=== PATIENT | male | born 1975 | race Two or more races ===

== ENCOUNTER 2023-01-30 16:50 | Inpatient (IN) | payer MEDICAID, OTHER ==
[~2023-01-30] VITALS: Ht 167.6 cm; Wt 76.5 kg
[2023-01-30] MEDS ORDERED: SODIUM CHLORIDE 0.9% 500 ML IV ONE (17:15)
[2023-01-30 18:10] LABS: Basophils # (auto) 0 10 ^3/uL (0-0.2); Basophils % (auto) 0.2 % (0.0-2.0); Eosinophils # (auto) 0.1 10 ^3/uL (0-0.8); Eosinophils % (auto) 0.6 % (0.0-7.0)
[2023-01-30 18:11] LABS: Hematocrit 11.5 % (41.0-53.0); Lymphocytes # (auto) 1.5 10 ^3/uL (0.4-5.4); Lymphocytes % (auto) 13.6 % (10.0-50.0); Mean Corpuscular Hemoglobin 25.5 pg (28.0-32.0); Mean Corpuscular Hgb Conc. 31.1 g/dL (32.0-36.0); Monocytes # (auto) 0.9 10 ^3/uL (0-1.3); Monocytes % (auto) 8.5 % (0.0-12.0); Neutrophils # (auto) 8.4 10 ^3/uL (1.6-8.6); Neutrophils % (auto) 77.1 % (37.0-80.0); White Blood Cell 10.9 10^3/uL (4.4-10.8)
[2023-01-30 18:25] LABS: INR 1.34 (0.9-1.15); Partial Thromboplastin Time 21.5 sec (24.6-33.4)
[2023-01-30 18:39] LABS: Albumin 2.7 g/dL (3.4-5.0); Anion Gap 10 (5-15); Blood Urea Nitrogen 13 mg/dL (7-18); Carbon Dioxide 26 mmol/L (21-32); Chloride 86 mmol/L (98-107); Lipase 926 U/L (73-393); Magnesium 2.3 mg/dL (1.6-2.6); Potassium 3.7 mmol/L (3.5-5.1); Sodium 122 mmol/L (136-145)
[2023-01-30 18:50] LABS: Hemoglobin 3.6 g/dL (13.5-17.5); Nucleated Red Blood Cells % 3.2 %; Red Cell Distribution Width 23.9 % (11.8-14.3)
[2023-01-30 18:51] LABS: Alanine Aminotransferase 61 U/L (16-61); Alkaline Phosphatase 200 U/L (45-117); Aspartate Aminotransferase 100 U/L (15-37); BUN/Creatinine Ratio 17.8 (10.0-20.0); Bilirubin, Total 1.6 mg/dL (0.2-1.0); Blood Alcohol < 3.0 mg/dL (0-5); GFR African American 147 mL/min; GFR Non-African American 121 mL/min; Glucose 197 mg/dL (74-106)
[2023-01-30 19:32] LABS: Platelet Estimate Adequate
[2023-01-30 19:33] LABS: Anisocytosis Slight; Hypochromia Marked; Large Platelets FEW; Stomatocytes Few; Tear Drop Cells FEW
[2023-01-30 19:55] LABS: Urine Bacteria NONE SEEN /hpf (None Seen); Urine Blood Negative /uL (Negative); Urine Clarity Clear (Clear); Urine Color Yellow (Yellow); Urine Mucus FEW (None Seen); Urine Protein, UAD TRACE (Negative); Urine Specific Gravity 1.021 (1.001-1.035); Urine WBC 14 /hpf (0 - 3)
[2023-01-30 21:10] VITALS: BP 118/48; PULSE 111; RESP 14; TEMP 98.3
[2023-01-30] MEDS ORDERED: ONDANSETRON HCL 4 MG/2 ML VIAL IV PRN (21:15)
[2023-01-30] MEDS ORDERED: PANTOPRAZOLE 40 MG TAB PO ONE (21:15)
[2023-01-30 21:30] VITALS: BP 120/43; PULSE 108; RESP 16; TEMP 98.4
[2023-01-30 22:00] LABS: % Iron Saturation 2.9 % (20-55)
[2023-01-31] VITALS (11 sets, daily range): BP systolic 99–126; BP diastolic 46–65; PULSE 86–105; RESP 15–20; TEMP 98.1–98.8; O2SAT 98–99
[2023-01-31 06:07] LABS: Basophils # (auto) 0 10 ^3/uL (0-0.2); Basophils % (auto) 0.4 % (0.0-2.0); Eosinophils # (auto) 0.1 10 ^3/uL (0-0.8); Lymphocytes # (auto) 1.5 10 ^3/uL (0.4-5.4)
[2023-01-31 06:09] LABS: Eosinophils % (auto) 1.8 % (0.0-7.0); Hematocrit 18.3 % (41.0-53.0); Lymphocytes % (auto) 21.6 % (10.0-50.0); Mean Corpuscular Hemoglobin 27.6 pg (28.0-32.0); Mean Corpuscular Hgb Conc. 33.6 g/dL (32.0-36.0); Mean Corpuscular Volume 82.2 fL (80.0-100.0); Monocytes # (auto) 0.6 10 ^3/uL (0-1.3); Monocytes % (auto) 9.5 % (0.0-12.0); Neutrophils # (auto) 4.5 10 ^3/uL (1.6-8.6); Neutrophils % (auto) 66.7 % (37.0-80.0); Nucleated Red Blood Cells % 0.7 %; Red Blood Cells 2.23 10^6/uL (4.5-5.90); Red Cell Distribution Width 17.7 % (11.8-14.3); White Blood Cell 6.8 10^3/uL (4.4-10.8)
[2023-01-31 06:17] LABS: Potassium 3.2 mmol/L (3.5-5.1)
[2023-01-31 06:21] LABS: Hemoglobin 6.1 g/dL (13.5-17.5)
[2023-01-31 06:25] LABS: Albumin 2.5 g/dL (3.4-5.0); BUN/Creatinine Ratio 23.3 (10.0-20.0); Bilirubin, Total 2.4 mg/dL (0.2-1.0); Calcium 7.6 mg/dL (8.5-10.1); Total Protein 5.4 g/dL (6.4-8.2)
[2023-01-31] MEDS: PANTOPRAZOLE 40 MG TAB PO SCH (10:00)
[2023-01-31] MEDS: PANTOPRAZOLE 40 MG/10 ML VIAL INJ IV SCH ×2 (10:02→22:12)
[2023-01-31] MEDS: FOLIC ACID 1 MG, MULTIPLE VITAMIN 10 ML, MAGNESIUM SULF SDV 50% 8 MEQ, THIAMINE INJ 100... INJ SCH ×5 (14:05)
[2023-01-31 15:56] LABS: Basophils # (auto) 0 10 ^3/uL (0-0.2); Basophils % (auto) 0.2 % (0.0-2.0); Eosinophils # (auto) 0.1 10 ^3/uL (0-0.8); Eosinophils % (auto) 1.1 % (0.0-7.0); Hematocrit 21.5 % (41.0-53.0); Lymphocytes % (auto) 18.1 % (10.0-50.0); Mean Corpuscular Hemoglobin 27.2 pg (28.0-32.0); Mean Corpuscular Volume 85.2 fL (80.0-100.0); Monocytes # (auto) 0.6 10 ^3/uL (0-1.3); Monocytes % (auto) 10.9 % (0.0-12.0); Neutrophils % (auto) 69.7 % (37.0-80.0); Nucleated Red Blood Cells % 0.6 %; Red Blood Cells 2.53 10^6/uL (4.5-5.90); Red Cell Distribution Width 16.9 % (11.8-14.3); White Blood Cell 5.8 10^3/uL (4.4-10.8)
[2023-01-31 16:02] LABS: Hemoglobin 6.9 g/dL (13.5-17.5)
[2023-02-01] VITALS (7 sets, daily range): BP systolic 102–113; BP diastolic 47–65; PULSE 80–98; RESP 17–18; TEMP 97.8–98.3; O2SAT 97–100
[2023-02-01 00:42] LABS: Hematocrit 20.3 % (41.0-53.0)
[2023-02-01 01:02] LABS: Hemoglobin 6.8 g/dL (13.5-17.5)
[2023-02-01 02:00] LABS: Hemoglobin 6.7 g/dL (13.5-17.5)
[2023-02-01 08:29] LABS: Basophils # (auto) 0 10 ^3/uL (0-0.2); Eosinophils # (auto) 0.1 10 ^3/uL (0-0.8); Hemoglobin 8.3 g/dL (13.5-17.5); Mean Corpuscular Hgb Conc. 32.8 g/dL (32.0-36.0); Red Blood Cells 2.93 10^6/uL (4.5-5.90)
[2023-02-01 08:31] LABS: Eosinophils % (auto) 1.8 % (0.0-7.0); Hematocrit 25.4 % (41.0-53.0); Lymphocytes % (auto) 22.3 % (10.0-50.0); Mean Corpuscular Hemoglobin 28.4 pg (28.0-32.0); Mean Corpuscular Volume 86.6 fL (80.0-100.0); Monocytes # (auto) 0.5 10 ^3/uL (0-1.3); Monocytes % (auto) 10.6 % (0.0-12.0); Neutrophils # (auto) 2.9 10 ^3/uL (1.6-8.6); Neutrophils % (auto) 64.3 % (37.0-80.0); Nucleated Red Blood Cells % 0.1 %; Red Cell Distribution Width 16.9 % (11.8-14.3); White Blood Cell 4.5 10^3/uL (4.4-10.8)
[2023-02-01 09:00] LABS: Albumin 2.5 g/dL (3.4-5.0); Calcium 7.6 mg/dL (8.5-10.1); Potassium 3.9 mmol/L (3.5-5.1)
[2023-02-01 09:04] LABS: BUN/Creatinine Ratio 7.7 (10.0-20.0); Bilirubin, Total 2.2 mg/dL (0.2-1.0); Total Protein 5.5 g/dL (6.4-8.2)
[2023-02-01] MEDS: PANTOPRAZOLE 40 MG TAB PO SCH (10:00)
[2023-02-01] MEDS: PANTOPRAZOLE 40 MG/10 ML VIAL INJ IV SCH ×2 (10:29→21:41)
[2023-02-01] MEDS: FOLIC ACID 1 MG, MULTIPLE VITAMIN 10 ML, MAGNESIUM SULF SDV 50% 8 MEQ, THIAMINE INJ 100... INJ SCH ×5 (15:32)
[2023-02-01] MEDS ORDERED: fentaNYL CITRATE 100 MCG/2 ML VL ONE (17:32)
[2023-02-01] MEDS ORDERED: MIDAZOLAM HCL 2MG/2ML 2ml VIAL (1mg/ml) ONE (17:32)
[2023-02-01] MEDS ORDERED: LIDOCAINE 2% (LOCAL ANESTH.) PF 5ml SDV ONE (17:36)
[2023-02-01] MEDS ORDERED: ONDANSETRON HCL 4 MG/2 ML VIAL ONE (17:36)
[2023-02-01] MEDS ORDERED: PROPOFOL 10 MG/ML 20 ML IV ONE (17:36)
[2023-02-01] MEDS ORDERED: ONDANSETRON HCL 4 MG/2 ML VIAL IV PRN (18:00)
[2023-02-01] MEDS: SUCRALFATE 1 GM/10 ML ORAL SUSP PO SCH (21:40)
[2023-02-02] VITALS (7 sets, daily range): BP systolic 103–129; BP diastolic 62–77; PULSE 17–98; RESP 17–20; TEMP 97.5–98.5; O2SAT 96–99
[2023-02-02] MEDS: SUCRALFATE 1 GM/10 ML ORAL SUSP PO SCH ×4 (06:06→21:59)
[2023-02-02] MEDS: PANTOPRAZOLE 40 MG/10 ML VIAL INJ IV SCH ×2 (09:41→21:59)
[2023-02-02] MEDS: FOLIC ACID 1 MG, MULTIPLE VITAMIN 10 ML, MAGNESIUM SULF SDV 50% 8 MEQ, THIAMINE INJ 100... INJ SCH ×5 (17:01)
[2023-02-03 05:00] VITALS: BP 109/70; PULSE 84; RESP 17; TEMP 98; O2SAT 96
[2023-02-03] MEDS: SUCRALFATE 1 GM/10 ML ORAL SUSP PO SCH ×2 (06:26→12:10)
[2023-02-03 08:00] VITALS: PULSE 71; RESP 19; O2SAT 95
[2023-02-03 08:49] VITALS: BP 138/86; PULSE 71; RESP 19; TEMP 98.2; O2SAT 95
[2023-02-03] MEDS ORDERED: SUCR1SUS26 PO (11:13)
[2023-02-03] MEDS ORDERED: PANT40TA2 PO (11:13)
[2023-02-03] MEDS ORDERED: HYDR-4902 PO ×3 (11:13→15:57)
[2023-02-03] MEDS: FOLIC ACID 1 MG, MULTIPLE VITAMIN 10 ML, MAGNESIUM SULF SDV 50% 8 MEQ, THIAMINE INJ 100... INJ SCH ×5 (12:00)
[2023-02-03] MEDS: PANTOPRAZOLE 40 MG/10 ML VIAL INJ IV SCH (12:10)
[2023-02-03 12:44] VITALS: BP 122/77; PULSE 87; RESP 19; TEMP 98.3; O2SAT 98
== END 2023-02-03 15:30 | disposition home or self-care (01) | DRG 242 ==
LOC: ER 16:50 → OVERFLOW 21:09 → WEST WING 01-31 18:34
PROVIDERS: ADMIT Nurse Practitioner; ATTEND Internal Medicine
PROC: 30233N1 Transfusion of Nonautologous Red Blood Cells into Peripheral Vein, Percutaneous Approach (ICD-10-PCS; 2023-01-30)
PROC: 0DB68ZX Excision of Stomach, Via Natural or Artificial Opening Endoscopic, Diagnostic (ICD-10-PCS; 2023-02-01)
PROC: 0DB58ZX Excision of Esophagus, Via Natural or Artificial Opening Endoscopic, Diagnostic (ICD-10-PCS; 2023-02-01)
PROC: 0DB98ZX Excision of Duodenum, Via Natural or Artificial Opening Endoscopic, Diagnostic (ICD-10-PCS; principal; 2023-02-01 17:30)
DX: K22.11 Ulcer of esophagus with bleeding (principal); K85.90 Acute pancreatitis without necrosis or infection, unspecified; D68.9 Coagulation defect, unspecified; E87.1 Hypo-osmolality and hyponatremia; F10.139 Alcohol abuse with withdrawal, unspecified; D64.9 Anemia, unspecified; K74.60 Unspecified cirrhosis of liver; K44.9 Diaphragmatic hernia without obstruction or gangrene; E87.8 Other disorders of electrolyte and fluid balance, not elsewhere classified; Y90.9 Presence of alcohol in blood, level not specified; K29.70 Gastritis, unspecified, without bleeding; K29.90 Gastroduodenitis, unspecified, without bleeding; Z83.3 Family history of diabetes mellitus
CPT/HCPCS: 36415; 74176; 80053; 80320; 81001; 82270; 83540; 83550; 83690; 83735; 85014; 85018; 85025; 85610; 85730; 86850; 86900; 86901; 86920; 93005; 96360; C9113; G0378; J2001; J2250; J2405; J2704

== ENCOUNTER 2024-07-11 09:27 | Inpatient (IN) | payer BC, MEDICAID ==
[~2024-07-11] VITALS: Ht 167.6 cm; Wt 74.4 kg
[~2024-07-11 09:27] MED LIST: HYDR-4902 PO; PANT40TA2 PO; SUCR1SUS26 PO
[2024-07-11] MEDS: SODIUM CHLORIDE 0.9% 1,000 ML IV ONE ×5 (10:13→20:26)
[2024-07-11 10:26] LABS: Basophils # (auto) 0.1 10 ^3/uL (0-0.2); Basophils % (auto) 0.4 % (0.0-2.0); Eosinophils # (auto) 0 10 ^3/uL (0-0.8); Hemoglobin 7.8 g/dL (13.5-17.5); Monocytes # (auto) 1.6 10 ^3/uL (0-1.3); Neutrophils # (auto) 14.6 10 ^3/uL (1.6-8.6)
[2024-07-11 10:28] LABS: Hematocrit 32.1 % (41.0-53.0); Lymphocytes # (auto) 0.6 10 ^3/uL (0.4-5.4); Lymphocytes % (auto) 3.8 % (10.0-50.0); Mean Corpuscular Hemoglobin 20.8 pg (28.0-32.0); Mean Corpuscular Hgb Conc. 24.3 g/dL (32.0-36.0); Mean Corpuscular Volume 85.6 fL (80.0-100.0); Monocytes % (auto) 9.5 % (0.0-12.0); Neutrophils % (auto) 86.3 % (37.0-80.0); Nucleated Red Blood Cells % 0.3 %; Platelet Count (auto) 345 10^3/uL (140-450); Red Blood Cells 3.75 10^6/uL (4.5-5.90); White Blood Cell 16.9 10^3/uL (4.4-10.8)
[2024-07-11] MEDS: THIAMINE 100mg/ml INJ (200mg/2ml VIAL) IV ONE (10:28)
[2024-07-11 10:43] LABS: Calcium 11.9 mg/dL (8.7-10.4)
[2024-07-11 10:47] LABS: BUN/Creatinine Ratio 15.5 (10.0-20.0); Blood Urea Nitrogen 29 mg/dL (9-23)
[2024-07-11 10:48] LABS: Blood Alcohol < 3.0 mg/dL (<10)
[2024-07-11 11:51] LABS: Sodium 117 mmol/L (136-145)
[2024-07-11 11:52] LABS: Anion Gap 29.00001 (5-15); Carbon Dioxide < 10 mmol/L (20-31); Chloride 78 mmol/L (98-107)
[2024-07-11 11:53] LABS: Glucose 697 mg/dL (74-106); Potassium 7.3 mmol/L (3.5-5.1)
[2024-07-11 12:00] LABS: Platelet Estimate Adequate
[2024-07-11 12:01] LABS: Anisocytosis Slight; Hypochromia Marked
[2024-07-11 12:22] LABS: Urine Bacteria None Seen /hpf (None Seen)
[2024-07-11] MEDS: ALBUTEROL SULF 2.5 MG/0.5ML(0.5%) NEB SOLN NEB ONE ×2 (12:40→15:32)
[2024-07-11 12:52] LABS: Urine Blood 1+ /uL (Negative); Urine Clarity Clear (Clear); Urine Color Light-Yellow (Yellow); Urine Protein, UAD TRACE (Negative); Urine Specific Gravity 1.018 (1.001-1.035); Urine Urobilinogen Normal (Negative); Urine WBC 1 /hpf (0 - 3)
[2024-07-11] MEDS: SODIUM BICARB 8.4% 50Meq/50ml SYR INJ IV ONE (13:30)
[2024-07-11] MEDS: InsuLIN REG 1unit/0.01ml Soln (100units/ml) IV ONE ×2 (13:30→15:00)
[2024-07-11] MEDS: CALCIUM GLUC 1,000mg/50ml-NS 50 ML IV ONE (13:33)
[2024-07-11] MEDS: SODIUM ZIRCONIUM CYCL 10 GM PAK PO ONE ×2 (13:33→14:44)
[2024-07-11] MEDS: DEXTROSE (50%) 50ML SYRG IV ONE (13:36)
[2024-07-11] MEDS: FUROSEMIDE 20 MG/2 ML VIAL IV ONE ×2 (13:37→15:13)
[2024-07-11 14:00] VITALS: PULSE 112; RESP 20; O2SAT 100
[2024-07-11 14:20] LABS: Alanine Aminotransferase 254 U/L (7-40); Albumin 3.7 g/dL (3.2-4.8); Alkaline Phosphatase 121 U/L (46-116); Anion Gap 29.00001 (5-15); Aspartate Aminotransferase 523 U/L (13-40); BUN/Creatinine Ratio 19.6 (10.0-20.0); Blood Urea Nitrogen 35 mg/dL (9-23); Calcium 11.5 mg/dL (8.7-10.4); Chloride 81 mmol/L (98-107)
[2024-07-11 14:21] LABS: Bilirubin, Total 2.2 mg/dL (0.2-1.0); Total Protein 5.7 g/dL (5.7-8.2)
[2024-07-11 14:24] LABS: Potassium 6.4 mmol/L (3.5-5.1); Sodium 120 mmol/L (136-145)
[2024-07-11 14:25] LABS: Carbon Dioxide < 10 mmol/L (20-31); Glucose 623 mg/dL (74-106)
[2024-07-11] MEDS: SODIUM BICARB 50mEq/50ml Vial 150 ML in D5W 5% 1,000 ML IV ONE (14:45)
[2024-07-11] MEDS: SODIUM BICARB 8.4% 50Meq/50ml SYR Vial IV ONE ×2 (15:13→23:45)
[2024-07-11] MEDS: PIPERACILLIN-TAZOB 3.375GM 100 ML IV SCH (15:30)
[2024-07-11] MEDS ORDERED: HYDROmorphone HCL 2 MG/ML VL/or syr IV PRN (16:15)
[2024-07-11] MEDS ORDERED: DEXTROSE (50%) 50ML SYRG IV PRN (16:15)
[2024-07-11] MEDS ORDERED: DOCUSATE SOD 100 MG CAP PO PRN (16:15)
[2024-07-11] MEDS: INSULIN LANTUS (GLARGINE) 1 /0.01ml (100units/ml) SC ONE (16:43)
[2024-07-11] MEDS: ACCU-CHEK COMFORT CURVE STRIP VI SCH (16:46)
[2024-07-11 16:47] LABS: Base Excess -14.7 mmol/L (-2.0-3.0)
[2024-07-11 17:08] LABS: Alanine Aminotransferase 276 U/L (7-40); Albumin 2.9 g/dL (3.2-4.8); Alkaline Phosphatase 94 U/L (46-116); Anion Gap 28 (5-15); Aspartate Aminotransferase 638 U/L (13-40); BUN/Creatinine Ratio 21.3 (10.0-20.0); Bilirubin, Total 1.9 mg/dL (0.2-1.0); Blood Urea Nitrogen 32 mg/dL (9-23); Calcium 9.9 mg/dL (8.7-10.4); Carbon Dioxide 14 mmol/L (20-31); Chloride 85 mmol/L (98-107); Potassium 4.3 mmol/L (3.5-5.1); Total Protein 4.7 g/dL (5.7-8.2)
[2024-07-11 17:09] LABS: INR 1.88 (0.9-1.15)
[2024-07-11] MEDS: INSULIN DRIP 100 UNIT/100ML 100 ML IV SCH (17:10)
[2024-07-11 17:19] LABS: Sodium 127 mmol/L (136-145)
[2024-07-11] MEDS: SUCRALFATE 1 GM/10 ML ORAL SUSP PO SCH (17:20)
[2024-07-11 17:21] LABS: Glucose 438 mg/dL (74-106)
[2024-07-11 17:22] LABS: Lactic Acid w/Reflex 19.2 mmol/L (0.4-2.0)
[2024-07-11] MEDS: SODIUM CHLORIDE 0.9% 3,000 ML IV ONE (17:30)
[2024-07-11] MEDS: ONDANSETRON HCL 4 MG/2 ML VIAL IV PRN (19:09)
[2024-07-11 19:35] VITALS: PULSE 128; RESP 19; O2SAT 100
[2024-07-11] MEDS: LORazepam 2MG/ML-1ML VIAL IV PRN (19:54)
[2024-07-11] MEDS: LORazepam 2MG/ML-1ML VIAL IV SCH ×2 (20:00)
[2024-07-11 20:47] LABS: Alanine Aminotransferase 327 U/L (7-40); Albumin 2.2 g/dL (3.2-4.8); Alkaline Phosphatase 68 U/L (46-116); Aspartate Aminotransferase 883 U/L (13-40); BUN/Creatinine Ratio 33.1 (10.0-20.0); Bilirubin, Total 1.2 mg/dL (0.2-1.0); Calcium 8.9 mg/dL (8.7-10.4); Carbon Dioxide 12 mmol/L (20-31); Total Protein 3.6 g/dL (5.7-8.2)
[2024-07-11 20:51] LABS: Blood Urea Nitrogen 43 mg/dL (9-23); Glucose 305 mg/dL (74-106); Sodium 132 mmol/L (136-145)
[2024-07-11 21:04] LABS: Anion Gap 27 (5-15); Chloride 93 mmol/L (98-107)
[2024-07-11] MEDS: NOREPINEPHRINE 8 MG/250ML KIT 250 ML IV SCH (21:30)
[2024-07-11] MEDS: SODIUM CHLOR 0.9% PF (SALINE LOCK) 10ML VIAL/SYR IV SCH (22:01)
[2024-07-11 22:55] LABS: Base Excess -12.9 mmol/L (-2.0-3.0)
[2024-07-11 23:07] LABS: Hematocrit 18.9 % (41.0-53.0)
[2024-07-11 23:11] LABS: Hemoglobin 4.7 g/dL (13.5-17.5)
[2024-07-11] MEDS: MIDAZOLAM HCL 5 MG/ML-1ML VIAL ONE (23:27)
[2024-07-11] MEDS: ROCURONIUM 10MG/ML 10ML VIAL IV ONE ×2 (23:27→23:30)
[2024-07-11] MEDS: VASOPRESSIN 20 UNITS in SODIUM CHL 0.9% 99 ML IV SCH (23:30)
[2024-07-11] MEDS: MIDAZOLAM HCL 5 MG/ML-1ML VIAL IV ONE (23:30)
[2024-07-11] MEDS: VASOPRESSIN 20 UNIT/ML ONE (23:42)
[2024-07-11] MEDS: SODIUM BICARB 8.4% 50Meq/50ml SYR INJ ONE (23:44)
[2024-07-11 23:45] VITALS: BP 65/18; PULSE 54; RESP 24; O2SAT 92
[2024-07-11] MEDS: CALCIUM GLUC 1,000mg/50ml-NS 50 ML IV SCH (23:45)
[2024-07-11 23:51] LABS: Lactic Acid w/Reflex 20.2 mmol/L (0.4-2.0)
[2024-07-11] MEDS: EPINEPHrine HCL 1 MG/10 ML SYRG IV ONE (23:53)
[2024-07-11] MEDS: EPINEPHrine HCL 250 ML IV ONE (23:59)
[2024-07-12] VITALS (124 sets, daily range): BP systolic 19–269; BP diastolic 14–295; PULSE 57–129; RESP 13–35; TEMP 96.8–99.9; O2SAT 40–100
[2024-07-12] MEDS: EPINEPHrine HCL 250 ML IV SCH
[2024-07-12] MEDS: PHENYLEPHRINE IV 250 ML IV SCH
[2024-07-12] MEDS: PROPOFOL 100 ML IV SCH
[2024-07-12] MEDS: AMIODARONE BOLUS KIT 100 ML IV ONE
[2024-07-12] MEDS: AMIODARONE 450mg/250ml AE 250 ML IV ONE (00:13)
[2024-07-12] MEDS: PHENYLEPHRINE IV 250 ML IV ONE (00:24)
[2024-07-12] MEDS: OCTREOTIDE ACETATE 100 MCG in SODIUM CHL 0.9% 50 ML IV ONE (00:30)
[2024-07-12] MEDS: OCTREOTIDE ACETATE 500 MCG in SODIUM CHL 0.9% 99 ML IV SCH (00:30)
[2024-07-12 00:56] LABS: Alanine Aminotransferase 451 U/L (7-40); Alkaline Phosphatase 72 U/L (46-116); Anion Gap 30 (5-15); BUN/Creatinine Ratio 22.7 (10.0-20.0); Blood Urea Nitrogen 37 mg/dL (9-23); Calcium 12.5 mg/dL (8.7-10.4); Carbon Dioxide 12 mmol/L (20-31); Chloride 93 mmol/L (98-107); Potassium 4.7 mmol/L (3.5-5.1); Sodium 135 mmol/L (136-145)
[2024-07-12 00:57] LABS: Albumin 2.3 g/dL (3.2-4.8); Bilirubin, Total 1.8 mg/dL (0.2-1.0); Total Protein 3.7 g/dL (5.7-8.2)
[2024-07-12 01:07] LABS: Aspartate Aminotransferase 1249 U/L (13-40)
[2024-07-12 01:08] LABS: Glucose 170 mg/dL (74-106)
[2024-07-12] MEDS: PANTOPRAZOLE 40 MG/10 ML VIAL INJ IV ONE (01:44)
[2024-07-12] MEDS: OCTREOTIDE ACETATE 500 MCG/ML VL ONE (01:45)
[2024-07-12] MEDS: OCTREOTIDE ACETATE 100 MCG/ML VL ONE (01:45)
[2024-07-12 02:35] LABS: Base Excess -16.2 mmol/L (-2.0-3.0)
[2024-07-12 03:56] LABS: Hematocrit 27.6 % (41.0-53.0); Hemoglobin 7.5 g/dL (13.5-17.5); White Blood Cell 12.3 10^3/uL (4.4-10.8)
[2024-07-12 03:58] LABS: Mean Corpuscular Hgb Conc. 27.1 g/dL (32.0-36.0); Mean Corpuscular Volume 91.9 fL (80.0-100.0); Platelet Count (auto) 158 10^3/uL (140-450)
[2024-07-12 04:04] LABS: Red Cell Distribution Width 23.6 % (11.8-14.3)
[2024-07-12 04:06] LABS: Basophils % (manual) 0 (0.0-2.0); Blast Cells 0; Eosinophils % (manual) 0 (0-7); Metamyelocytes % 0; Promyelocytes % 0; Reactive Lymphocytes 0
[2024-07-12 04:32] LABS: Albumin 2.2 g/dL (3.2-4.8); Alkaline Phosphatase 154 U/L (46-116); Anion Gap 24 (5-15); BUN/Creatinine Ratio 21.6 (10.0-20.0); Bilirubin, Total 2.2 mg/dL (0.2-1.0); Blood Urea Nitrogen 37 mg/dL (9-23); Calcium 9.8 mg/dL (8.7-10.4); Carbon Dioxide 14 mmol/L (20-31); Chloride 99 mmol/L (98-107); Glucose 135 mg/dL (74-106); Sodium 137 mmol/L (136-145); Total Protein 3.6 g/dL (5.7-8.2)
[2024-07-12 04:56] LABS: Band Neutrophils % (manual) 19; Lymphocytes % (manual) 13 (10.0-50.0); Monocytes % (manual) 5 (0-12); Myelocytes % 1; Platelet Estimate Adequate
[2024-07-12 04:58] LABS: Base Excess -15.8 mmol/L (-2.0-3.0)
[2024-07-12 04:59] LABS: Alanine Aminotransferase 1393 U/L (7-40)
[2024-07-12] MEDS: SODIUM BICARB 8.4% 50Meq/50ml SYR Vial IV ONE ×5 (05:44→22:52)
[2024-07-12] MEDS: SODIUM BICARB 50mEq/50ml Vial 100 ML in D5W 5% 1,000 ML IV SCH (05:45)
[2024-07-12 06:12] LABS: Aspartate Aminotransferase 3882 U/L (13-40)
[2024-07-12] MEDS: MIDAZOLAM DRIP 50 mg/50mL 50 ML IV SCH (08:08)
[2024-07-12] MEDS: fentaNYL Drip 2500mCg/250mlNS 250 ML IV SCH (08:09)
[2024-07-12] MEDS: AMIODARONE 450mg/250ml AE 250 ML IV SCH ×2 (08:10)
[2024-07-12] MEDS: SODIUM BICARB 8.4% 50Meq/50ml SYR INJ ONE ×2 (08:11)
[2024-07-12] MEDS: INSULIN LANTUS (GLARGINE) 1 /0.01ml (100units/ml) SC SCH (08:20)
[2024-07-12] MEDS: THIAMINE HCL 100 MG TAB PO SCH (08:23)
[2024-07-12] MEDS: PANTOPRAZOLE 40 MG TAB PO SCH (08:23)
[2024-07-12] MEDS: FOLIC ACID 1 MG TAB PO SCH (08:24)
[2024-07-12 09:47] LABS: Base Excess -20.7 mmol/L (-2.0-3.0)
[2024-07-12] MEDS: SODIUM CHLORIDE 0.9% 2,000 ML IV ONE ×2 (11:00→14:33)
[2024-07-12] MEDS: PANTOPRAZOLE 40mg/50ML NS AE 50 ML IV SCH (11:33)
[2024-07-12 13:14] LABS: Base Excess -24.3 mmol/L (-2.0-3.0)
[2024-07-12] MEDS ORDERED: MEROPENEM 500MG IVPB 50 ML IV ONE (14:15)
[2024-07-12] MEDS: MEROPENEM 1GM IVPB 50 ML IV ONE (14:29)
[2024-07-12] MEDS: HYDROCORTISONE SOD SUCC 100 MG/2ML INJ VIAL IV ONE (14:29)
[2024-07-12 14:42] LABS: Base Excess -23.9 mmol/L (-2.0-3.0)
[2024-07-12] MEDS: DOPamine 1600MCG/ML D5W 250 ML IV ONE (14:51)
[2024-07-12 15:02] LABS: Mean Corpuscular Hemoglobin 23.5 pg (28.0-32.0)
[2024-07-12 15:03] LABS: Hematocrit 21.2 % (41.0-53.0); Mean Corpuscular Hgb Conc. 26.4 g/dL (32.0-36.0); Mean Corpuscular Volume 88.9 fL (80.0-100.0); Platelet Count (auto) 104 10^3/uL (140-450); Red Blood Cells 2.38 10^6/uL (4.5-5.90); White Blood Cell 18.1 10^3/uL (4.4-10.8)
[2024-07-12] MEDS: HEPARIN 1,000 UNITS/ml 1ML VIAL ONE (15:04)
[2024-07-12 15:08] LABS: Lactic Acid w/Reflex 28.6 mmol/L (0.4-2.0); Red Cell Distribution Width 24.9 % (11.8-14.3)
[2024-07-12 15:10] LABS: Hemoglobin 5.6 g/dL (13.5-17.5)
[2024-07-12 15:12] LABS: Basophils % (manual) 0 (0.0-2.0); Blast Cells 0; Eosinophils % (manual) 0 (0-7); Promyelocytes % 0; Reactive Lymphocytes 0
[2024-07-12] MEDS: METHYLENE BLUE 0.5% 5MG/ML 10ml AMP IV ONE (15:22)
[2024-07-12 15:27] LABS: Albumin 1.4 g/dL (3.2-4.8); Alkaline Phosphatase 80 U/L (46-116); Anion Gap 32.00001 (5-15); BUN/Creatinine Ratio 17.7 (10.0-20.0); Calcium 8.4 mg/dL (8.7-10.4); Chloride 99 mmol/L (98-107); Glucose 188 mg/dL (74-106); Potassium 5.2 mmol/L (3.5-5.1); Sodium 141 mmol/L (136-145); Total Protein 2.5 g/dL (5.7-8.2)
[2024-07-12 15:28] LABS: Anisocytosis Moderate; Band Neutrophils % (manual) 26; Hypochromia Moderate; Lymphocytes % (manual) 19 (10.0-50.0); Metamyelocytes % 8; Monocytes % (manual) 4 (0-12); Myelocytes % 1; Platelet Estimate Decreased
[2024-07-12 15:44] LABS: Alanine Aminotransferase 3078 U/L (7-40); Aspartate Aminotransferase > 6000 U/L (13-40); Blood Urea Nitrogen 47 mg/dL (9-23)
[2024-07-12 15:45] LABS: Carbon Dioxide < 10 mmol/L (20-31)
[2024-07-12] MEDS ORDERED: ARTIFICIAL TEAR OPTH(EYE) OINT 3.5GM EACHEYE ONE (16:15)
[2024-07-12] MEDS: PHENYLEPHRINE INJ 80 MG in SODIUM CHL 0.9% 242 ML IV SCH (16:30)
[2024-07-12 16:43] LABS: Base Excess -26.1 mmol/L (-2.0-3.0)
[2024-07-12] MEDS: EPINEPHrine HCL INJECTION 16 MG in D5W 5% 234 ML IV SCH (17:00)
[2024-07-12] MEDS: NOREPINEPHRINE 8 MG/250ML KIT 250 ML IV ONE (17:04)
[2024-07-12] MEDS: HYDROCORTISONE SOD SUCC 100 MG/2ML INJ VIAL IV SCH (18:00)
[2024-07-12] MEDS ORDERED: VANCOMYCIN PER PHARMACY 0 MG IV SCH (18:00)
[2024-07-12] MEDS: ALBUMIN 25% 100 ML IV ONE ×2 (19:42→20:00)
[2024-07-12] MEDS: ALBUMIN 25% 100 ML IV SCH (20:00)
[2024-07-12] MEDS: NOREPINEPHRINE BITARTRATE 32 MG in SODIUM CHL 0.9% 218 ML IV SCH (20:13)
[2024-07-12 20:17] LABS: Base Excess -25.5 mmol/L (-2.0-3.0)
[2024-07-12 20:29] LABS: Hemoglobin 7.2 g/dL (13.5-17.5); Red Blood Cells 2.85 10^6/uL (4.5-5.90)
[2024-07-12 20:31] LABS: Mean Corpuscular Hemoglobin 25.4 pg (28.0-32.0); Mean Corpuscular Hgb Conc. 26.8 g/dL (32.0-36.0); Mean Corpuscular Volume 94.6 fL (80.0-100.0); Platelet Count (auto) 93 10^3/uL (140-450); White Blood Cell 23.6 10^3/uL (4.4-10.8)
[2024-07-12 20:47] LABS: Albumin 1.7 g/dL (3.2-4.8); Alkaline Phosphatase 104 U/L (46-116); Anion Gap 30.00001 (5-15); Blood Urea Nitrogen 38 mg/dL (9-23); Calcium 7.6 mg/dL (8.7-10.4); Chloride 99 mmol/L (98-107); Glucose 147 mg/dL (74-106); Sodium 139 mmol/L (136-145)
[2024-07-12 20:48] LABS: Bilirubin, Total 2.4 mg/dL (0.2-1.0); Total Protein 2.9 g/dL (5.7-8.2)
[2024-07-12 21:18] LABS: Alanine Aminotransferase 4946 U/L (7-40); Aspartate Aminotransferase > 6000 U/L (13-40)
[2024-07-12 21:20] LABS: Carbon Dioxide < 10 mmol/L (20-31); Lactic Acid w/Reflex 29.6 mmol/L (0.4-2.0); Potassium 6.2 mmol/L (3.5-5.1)
[2024-07-12 21:26] LABS: Basophils % (manual) 0 (0.0-2.0); Blast Cells 0; Promyelocytes % 0; Reactive Lymphocytes 0; Red Cell Distribution Width 24.7 % (11.8-14.3)
[2024-07-12] MEDS: VANCOMYCIN 1.5GM/300ML 300 ML IV ONE (21:44)
[2024-07-12 21:52] LABS: Anisocytosis Moderate; Band Neutrophils % (manual) 29; Eosinophils % (manual) 1 (0-7); Lymphocytes % (manual) 32 (10.0-50.0); Metamyelocytes % 4; Monocytes % (manual) 5 (0-12); Myelocytes % 4; Platelet Estimate Decreased
[2024-07-12] MEDS ORDERED: ALBUTEROL SULF 2.5 MG/0.5ML(0.5%) NEB SOLN NEB ONE (22:00)
[2024-07-12] MEDS ORDERED: EPINEPHRINE HCL IV SCH (22:00)
[2024-07-12] MEDS ORDERED: ARTIFICIAL TEAR OPTH(EYE) OINT 3.5GM EACHEYE SCH (22:00)
[2024-07-12] MEDS ORDERED: SODIUM CHL 0.9% IV SCH (22:00)
[2024-07-12] MEDS: ARTIFICIAL TEARS 15ml EACHEYE PRN (22:17)
[2024-07-12] MEDS: ALBUTEROL SULF 2.5 MG/0.5ML(0.5%) NEB SOLN ONE (22:27)
[2024-07-12] MEDS: DOPamine 1600MCG/ML D5W 250 ML IV SCH (22:51)
[2024-07-12] MEDS: CALCIUM GLUC 1,000mg/50ml-NS 50 ML IV ONE (22:53)
[2024-07-12] MEDS: MEROPENEM 1GM IVPB 50 ML IV SCH (23:20)
[2024-07-12 23:39] LABS: Base Excess -25.7 mmol/L (-2.0-3.0)
[2024-07-13] VITALS: BP_SYST 105; BP_SYST 99; BP_DIAS 33; BP_DIAS 34; PULSE 68; PULSE 69; RESP 35; TEMP 97.2; O2SAT 68; O2SAT 69
[2024-07-13] MEDS ORDERED: MEROPENEM 500MG IVPB 50 ML IV SCH (10:00)
[2024-07-13] MEDS ORDERED: CALCIUM CHLOR(10%) 100MG/ML 10ML SYRINGE IV ONE (12:54)
[2024-07-15 09:19] LABS: Hepatitis B Surface Antigen Negative (Negative)
[2024-07-15 09:28] LABS: Hepatitis A Ab IgM Negative; Hepatitis B Core IgM Negative
[2024-07-15 09:29] LABS: Hepatitis C Antibody Negative (Negative)
== END 2024-07-13 00:12 | DRG 871 ==
LOC: ER 09:27 → TELE 16:08 → ICU WEST 07-12 04:10
PROVIDERS: ADMIT Internal Medicine; ATTEND Internal Medicine
PROC: 30233N1 Transfusion of Nonautologous Red Blood Cells into Peripheral Vein, Percutaneous Approach (ICD-10-PCS; principal; 2024-07-12)
PROC: 30233K1 Transfusion of Nonautologous Frozen Plasma into Peripheral Vein, Percutaneous Approach (ICD-10-PCS; 2024-07-12)
PROC: 5A1935Z Respiratory Ventilation, Less than 24 Consecutive Hours (ICD-10-PCS; 2024-07-12)
PROC: 0BH18EZ Insertion of Endotracheal Airway into Trachea, Via Natural or Artificial Opening Endoscopic (ICD-10-PCS; 2024-07-12)
PROC: 04HY32Z Insertion of Monitoring Device into Lower Artery, Percutaneous Approach (ICD-10-PCS; 2024-07-12)
PROC: 06HY33Z Insertion of Infusion Device into Lower Vein, Percutaneous Approach (ICD-10-PCS; 2024-07-12)
PROC: 05HY33Z Insertion of Infusion Device into Upper Vein, Percutaneous Approach (ICD-10-PCS; 2024-07-12)
PROC: 0DH67UZ Insertion of Feeding Device into Stomach, Via Natural or Artificial Opening (ICD-10-PCS; 2024-07-12)
PROC: 5A12012 Performance of Cardiac Output, Single, Manual (ICD-10-PCS; 2024-07-13)
DX: A41.9 Sepsis, unspecified organism (principal); E11.10 Type 2 diabetes mellitus with ketoacidosis without coma; J80 Acute respiratory distress syndrome; K72.00 Acute and subacute hepatic failure without coma; I85.01 Esophageal varices with bleeding; K85.20 Alcohol induced acute pancreatitis without necrosis or infection; N17.9 Acute kidney failure, unspecified; E87.1 Hypo-osmolality and hyponatremia; G93.1 Anoxic brain damage, not elsewhere classified; F10.139 Alcohol abuse with withdrawal, unspecified; E87.5 Hyperkalemia; N18.9 Chronic kidney disease, unspecified; K70.30 Alcoholic cirrhosis of liver without ascites; D64.9 Anemia, unspecified; K21.9 Gastro-esophageal reflux disease without esophagitis; K70.10 Alcoholic hepatitis without ascites; R57.8 Other shock; E80.6 Other disorders of bilirubin metabolism; Y90.9 Presence of alcohol in blood, level not specified; E11.22 Type 2 diabetes mellitus with diabetic chronic kidney disease; Z87.11 Personal history of peptic ulcer disease; Z83.3 Family history of diabetes mellitus; Z82.0 Family history of epilepsy and other diseases of the nervous system; Z79.891 Long term (current) use of opiate analgesic; Z79.899 Other long term (current) drug therapy
CPT/HCPCS: 31500; 36415; 36556; 36600; 71045; 74176; 76700; 80048; 80053; 80074; 80320; 81001; 82010; 82805; 82962; 83605; 83690; 83930; 83935; 84132; 85007; 85014; 85018; 85025; 85027; 85610; 86850; 86900; 86901; 86920; 87040; 87070; 87077; 87081; 87205; 90935; 92950; 93306; 94002; 94003; 94640; 99291; G0378; J0171; J1815; J2185; J2250; J2405; J2470; J2543; J2704; J7060; P9047

== ENCOUNTER 2024-07-13 00:12 | Inpatient (IN) | payer OTHER | END 2024-07-13 00:15 | DRG 871 | LOC: ICU WEST 00:12 | PROVIDERS: ADMIT Internal Medicine; ATTEND Internal Medicine | DX: A41.9 Sepsis, unspecified organism (principal); E11.10 Type 2 diabetes mellitus with ketoacidosis without coma; J80 Acute respiratory distress syndrome; K72.00 Acute and subacute hepatic failure without coma; K85.90 Acute pancreatitis without necrosis or infection, unspecified; K92.2 Gastrointestinal hemorrhage, unspecified; N17.9 Acute kidney failure, unspecified; E87.1 Hypo-osmolality and hyponatremia; F10.939 Alcohol use, unspecified with withdrawal, unspecified; R57.8 Other shock; D64.9 Anemia, unspecified; E87.5 Hyperkalemia; Y90.9 Presence of alcohol in blood, level not specified; E80.6 Other disorders of bilirubin metabolism | CPT/HCPCS: G0378 ==